=== PATIENT | male | born 1960 | race Caucasian/White ===

== ENCOUNTER → 2021-01-17 | Outpatient (CLI) | payer OTHER ==
--- NOTE | 2021-01-18 07:55 | KCIC ---
EXAM: MRI Right shoulder DATE: 01/17/2021 9:28 AM COMPARISON: 01/01/2021 INDICATION: Reason: RIGHT SHOULDER PAIN, Recent fall on the ice with severe shoulder pain and LROM. N o surgical hx. TECHNIQUE: Multiplanar, multisequence MRI of the Right shoulder was performed without contrast. FINDINGS: AC joint degenerative changes are seen with prominent inferior projecting osteophytes. No os acromial e. Type II acromion. Subacromial subdeltoid bursal fluid from full-thickness tear described below. Small right glenohumera l joint effusion. There is a full-thickness, subtotal width tear of the supraspinatus tendon measuring 1.8 cm in AP dim ension with retraction to the level of the distal acromion. Addition there is a full-thickness, partial width tear of the superior fibers of the subscapularis te ndon measuring approximately 1 cm in craniocaudal dimension. Background of moderate subscapularis, hughes praspinatus and infraspinatus tendinosis. Rotator cuff muscle signal and bulk is normal without fatty atrophy. Mild increased signal and thickening of the intra-articular portion of the long head biceps tendon. Partial fluid signal extending between the labral chondral junction at the posterosuperior labrum con sistent with labral tear/partial detachment. In addition there is irregularity and signal through the anterior-inferior labrum consistent with labral tear. Heterogeneous signal within the subscapularis recess likely joint body. No fracture or osteonecrosis. Intermittent chondral thinning without discrete full-thickness defect. IMPRESSION: 1. Full-thickness, partial width tear of the supraspinatus and subscapularis tendons as described ab ove. Background of subscapularis, supraspinatus and infraspinatus tendinosis. 2. Mild intra-articular long head biceps tendinosis. 3. Posterosuperior and anteroinferior partial detachment/tear. 4. AC joint degenerative changes are seen. 5. Small right glenohumeral joint effusion with small joint bodies. Electronically signed by: Lukas Peace MD (01/18/2021 7:53 AM) [id number] Laterality
== END ==
LOC: KCIC MRI 09:16
PROVIDERS: ATTEND Nurse Practitioner Adult Health
DX: M19.011 Primary osteoarthritis, right shoulder (principal); M25.411 Effusion, right shoulder
CPT/HCPCS: 73221

== ENCOUNTER → 2021-02-23 | Outpatient (CLI) | payer OTHER ==
[~2021-02-23] MED LIST: FLUT9.9S NS; LEVO75TA5 PO; VARE1TAB21 PO; VENTOLIN HFA18 GM INH
[2021-02-23 09:56] LABS: BASO # 0.1 x10^3/uL (0.0-0.2); BASO % 1 % (0-3); EOS # 0.2 x10^3/uL (0.0-0.7); EOS % 3 % (0-3); HEMATOCRIT 44.8 % (39.0-53.0); HEMOGLOBIN 15.5 g/dL (13.0-17.5); LYMPH # 1.5 x10^3/uL (1.0-4.8); LYMPH % 20 % (24-48); MEAN CORPUSCULAR HEMOGLOBIN 31 pg (25-35); MEAN CORPUSCULAR HGB CONC 35 g/dL (31-37); MEAN CORPUSCULAR VOLUME 89 fL (79-100); MONO # 0.4 x10^3/uL (0.0-1.1); MONO % 6 % (0-9); NEUT # 5.3 x10^3/uL (1.8-7.7); NEUT % 71 % (31-73); PLATELET COUNT 233 x10^3/uL (140-400); RED BLOOD COUNT 5.04 x10^6/uL (4.30-5.70); RED CELL DISTRIBUTION WIDTH 13.4 % (11.5-14.5); WHITE BLOOD COUNT 7.5 x10^3/uL (4.0-11.0)
--- NOTE | 2021-02-23 10:06 | EKG ---
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
[2021-02-23 10:29] LABS: ANION GAP 6 (6-14); BLOOD UREA NITROGEN 10 mg/dL (8-26); CALCIUM 8.4 mg/dL (8.5-10.1); CARBON DIOXIDE 30 mmol/L (21-32); CHLORIDE 106 mmol/L (98-107); GLUCOSE 80 mg/dL (70-99); POTASSIUM 4.1 mmol/L (3.5-5.1); SODIUM 142 mmol/L (136-145)
== END ==
LOC: SURGPAT 09:16
PROVIDERS: ATTEND Orthopaedic Surgery
DX: Z01.812 Encounter for preprocedural laboratory examination (principal); S46.011A Strain of muscle(s) and tendon(s) of the rotator cuff of right shoulder, initial encounter; S43.431A Superior glenoid labrum lesion of right shoulder, initial encounter; X58.XXXA Exposure to other specified factors, initial encounter; Y93.89 Activity, other specified; Y92.89 Other specified places as the place of occurrence of the external cause; Y99.8 Other external cause status; Z20.822 Contact with and (suspected) exposure to COVID-19
CPT/HCPCS: 80048; 85025; 93005; U0003; U0005

== ENCOUNTER 2021-02-28 10:13 | Day surgery (SDC) | payer OTHER ==
[~2021-02-28] VITALS: Ht 177.8 cm; Wt 81.6 kg
[~2021-02-28 10:13] MED LIST changes: +HYDROmorphone 2 MG/ML VIAL IVP PRN; +IV RINGERS,LACTATED 1000ML 1,000 ML IV SCH; +MORPHINE SULFATE 2 MG/ML VIAL. IVP PRN; +PROCHLORPERAZINE 10 MG/2 ML VIAL. IVP PRN; +fentaNYL PF VIAL 100 MCG/2 ML VIAL IVP PRN
[2021-02-28] MEDS ORDERED: HYDR-2765 PO (10:52)
[2021-02-28] MEDS ORDERED: LIDOCAINE 2% PF 5 ML VIAL. ONE (11:10)
[2021-02-28] MEDS ORDERED: DEXAMETHASONE SOD PHOS 4 MG/ML VIAL ONE (11:10)
[2021-02-28] MEDS ORDERED: ONDANSETRON PF 4 MG/2 ML VIAL. ONE (11:10)
[2021-02-28] MEDS ORDERED: ROCURONIUM 50 MG/5 ML VIAL. ONE (11:10)
[2021-02-28] MEDS ORDERED: fentaNYL PF VIAL 250 MCG/5 ML VIAL ONE (11:10)
[2021-02-28] MEDS ORDERED: PROPOFOL 10 MG/ML (20ML) VIAL. IV ONE (11:10)
[2021-02-28] MEDS ORDERED: SEVOFLURANE > 120 MINUTES. IH ONE (11:11)
[2021-02-28] MEDS ORDERED: MIDAZOLAM HCL/PF 2 MG/2 ML VIAL. ONE (11:23)
[2021-02-28] MEDS ORDERED: BUPIVACAINE-EPI 0.5% 30 ML VIAL KIT. ONE (11:26)
[2021-02-28] MEDS ORDERED: LIDOCAINE 1% PF 2 ML VIAL. ONE (11:26)
[2021-02-28] MEDS ORDERED: HYDROcodone/APAP 5/325MG 1 TAB TABLET ONE (11:41)
[2021-02-28] MEDS ORDERED: EPINEPHrine VIAL 30 MG/30 ML VIAL ONE (12:21)
[2021-02-28] MEDS ORDERED: ceFAZolin 2GM PREMIX 2 GM/50 ML BAG IV ONE (13:00)
[2021-02-28] MEDS ORDERED: ePHEDrine PF IN SALINE 50 MG/10 ML SYRINGE. IV ONE (13:45)
[2021-02-28] MEDS ORDERED: oxyCODONE/APAP 7.5/325 1 TAB TABLET PO ONE (14:00)
[2021-02-28] MEDS ORDERED: OXYC1TAB19 PO (14:05)
--- NOTE | 2021-02-28 14:23 | DISCH ---
DISCHARGE INSTRUCTIONS Condition on Discharge Condition on Discharge: Stable Activity After Discharge Activity Instructions for Disc: Other, see below (Fine motor use of right hand only with elbow at side no lifting but can gently swing and pendulum motion to right shoulder) Weight Bearing Status after Di: Non weight bearing Diet after Discharge Diet after Discharge: Regular Wound Incision Care Wound/Incision Care: Ice to area for comfort, Change dressing (Remove dressing in 2 days may then shower no soaking until follow-up visit) Community/Resources/Services Services at Discharge: PT EVALUATE & TREAT (Passive range of motion of right shoulder only for 1 month postoperatively) Contacting the after DC Call your doctor for: Concerns you may have Follow-Up Follow up with: Dr. Vidales or Yannick 10 days TIFF VIDALES MD Feb 28, 2021 14:23
[2021-02-28] MEDS ORDERED: GLYCOPYRROLATE 1 MG/5 ML VIAL. ONE (14:28)
[2021-02-28] MEDS ORDERED: NEOSTIGMINE METHYLSULFATE 5 MG/5 ML SYRINGE. ONE (14:28)
[2021-02-28 15:29] VITALS: BP 130/69
--- NOTE | 2021-02-28 18:45 | PDOC4 ---
Operative Note Operative Note Date of surgery: 02/28/2021 Preoperative diagnosis: Full-thickness supraspinatus tear with suspected superior labral biceps involvement Postoperative diagnosis: Same with type II SLAP tear and severe labral fraying with compromise of biceps anchor and full-thickness retracted tear of the supraspinatus Operative procedure: Right shoulder arthroscopy, mini open rotator cuff repair and biceps tenodesis Surgeon: Sobeida Assist: Cr Ibarra floral assistant Anesthesia: General plus scalene block Estimated blood loss: 15 cc Complications: None Operative indications: Please see my preoperative clinic note for detailed operative indications and note that patient has pain and weakness in the right shoulder with a documented full-thickness tear of the supraspinatus and suspicion of significant involvement of the superior labrum biceps anchor area. I had gone over with him the natural history of rotator cuff tear and the results of nonoperative treatment as well as operative treatment options and the necessity of appropriately treating any other pathology at the same time. Spec ifically a likely biceps tenodesis if the biceps anchor and superior labrum are compromised. We talked about the possibility of nonhealing continued pain infection nerve or blood vessel damage medical or other anesthetic complications among others and the usual long rehab. All his questions were answered he wishes to proceed with surgical evaluation and treatment Operative text: Patient was identified procedure verified patient placed in the supine position on the operating table. After adequate amounts of general anesthesia and previous scalene block were obtained he was placed in the decubitus position right side up all bony prominences were well-padded and the right shoulder was prepped and draped in standard sterile fashion. He was found to have full range of motion with no instability. He was then placed in the arthroscopic arm rios with a total of 15 pounds of traction and after timeout was performed patient procedure identified and verified a standard posterior portal was established an anterior portal established using spinal needle localization and the shoulder joint was systematically examined. Glenohumeral joint was noted to be in good condition with a full-thickness retracted tear of the supraspinatus normal bare area of the humerus and intact subscapularis and infraspinatus tendon insertion. He did have significant superior labral fraying with a type II SLAP tear and I elected to proceed with a biceps tenodesis and therefore the biceps was cut and tagged and the labrum debrided back to stable tissue with arthroscopic shaver and bipolar electrocautery. Subacromial space was then entered and the supraspinatus tendon was mobilized and the rotator cuff footprint debrided back to a bleeding bony surface without decortication. Visualization was severely impaired arthroscopically with mobilization of the torn tendon therefore I elected to proceed with a mini open rotator cuff repair and a small deltoid splitting incision was made at the site of the lateral portal. Biceps tenodesis was carried out in the midportion of the bicipital groove after appropriate whipstitching and tensioning of the tendon with a 9 x 16 mm Quatro bolt tenodesis screw with excellent fixation. 2 double loaded juggernaut soft anchors with 2 #2 max braid sutures each were placed at the medial row footprint area and sutures were placed corresponding to the mobilized supraspinatus tendon in a simple fashion and lateral row repair carried out with a total of 2 Quatro link knotless anchors 4.5 mm which provided an excellent double row repair that was watertight under all degrees of internal and external rotation. Thorough irrigation carried out with the arthroscopic fluid and closure accomplished with buried Vicryl subcuticular Monocryl. Sterile dressings were placed patient was placed in an immobilizer and returned to recovery room in stable condition having tolerated procedure well. Cr samuel was present for the procedure and assisted in patient positioning prepping draping retraction closure and dressings TIFF MACHADO MD Feb 28, 2021 18:45
--- NOTE | 2021-03-02 22:42 | DS ---
DATE OF DISCHARGE: 02/28/2021 PRINCIPAL DIAGNOSIS: Arthropathy of right shoulder. PROCEDURE: Right reverse total shoulder arthroplasty. DISPOSITION: Home with outpatient physical therapy. FOLLOWUP: With Dr. Vidales in 7-10 days. DISPOSITION MEDICATIONS: Oxycodone 5 mg p.o. q. 4 hours p.r.n. severe pain, tramadol 50 mg p.o. q. 4 hours p.r.n. moderate pain DISCHARGE INSTRUCTIONS: Resume preoperative medications, activity is a standard reverse shoulder precautions, avoid reaching around the back for the first 2 months postoperatively, otherwise can use the shoulder for some fine motor use. Pendulum exercises at the side. Progressively increasing activities as symptomatically tolerated with lifting, reaching and strengthening. Maintain WHITLEY dressing. Call if saturated, otherwise keep dressing sealed. May shower unless there is drainage. BRIEF DESCRIPTION OF HOSPITAL COURSE: The patient underwent an uncomplicated right reverse shoulder arthroplasty. Postoperatively, had pain controlled by oxycodone and/or tramadol depending on its severity after his block wore off. He did have some bloody drainage over the midpoint of the incision. Distal neurovascular status was intact postoperatively and he had minimal distal swelling and was discharged to home in stable medical condition. NATE DR: Vi TID: [id number]
== END 2021-02-28 15:55 | disposition home or self-care (01) ==
LOC: SURG 10:13
PROVIDERS: ATTEND Orthopaedic Surgery
DX: S43.431A Superior glenoid labrum lesion of right shoulder, initial encounter (principal); E03.9 Hypothyroidism, unspecified; Z79.899 Other long term (current) drug therapy; Z98.890 Other specified postprocedural states; Z72.89 Other problems related to lifestyle; Z87.891 Personal history of nicotine dependence; Y93.89 Activity, other specified; Y92.89 Other specified places as the place of occurrence of the external cause; Y99.8 Other external cause status
CPT/HCPCS: 29827; 29828; 64415; A4930; C1713; J0171; J0690; J1100; J2250; J2405; J2704; J2710; J3010; J3490; A4223